=== PATIENT | female | born 1970 | race Caucasian/White ===

== ENCOUNTER → 2023-06-05 | Outpatient (CLI) | payer OTHER ==
--- NOTE | 2023-06-06 02:02 | MR ---
EXAMINATION TYPE: MR knee RT wo con DATE OF EXAM: 06/05/2023 COMPARISON: NONE HISTORY: Rt knee pain with locking and swelling for one month. Internal derangement per order. TECHNIQUE: Multiplanar, multisequence images of the knee is performed without IV contrast. FINDINGS: MEDIAL MENISCUS: Anterior and posterior horns are intact without tear. LATERAL MENISCUS: Anterior and posterior horns are intact without tear. CRUCIATE LIGAMENTS: The anterior and posterior cruciate ligaments are intact and unremarkable. COLLATERAL LIGAMENTS: The medial collateral ligament and lateral collateral ligament complex are inta ct and unremarkable. EXTENSOR MECHANISM: Visualized quadriceps and patellar tendons are intact. EFFUSION: Small to moderate size suprapatellar joint effusion. POPLITEAL CYST: Moderate size popliteal/kay cyst with adjacent fluid suggesting leak. Increased sig nal origin of the medial head gastrocnemius muscle axial image 11 consistent with tendinosis. TRICOMPARTMENT SPACES: Moderate to severe narrowing patellofemoral compartment. Moderate narrowing me dial tibiofemoral compartment. Mild tricompartment spurring. CARTILAGE: Chondromalacia patella with areas of full-thickness cartilaginous loss in the lower pole s een. BONE MARROW SIGNAL: Some heterogeneity is present. No suspicious edema is seen. OTHER: No additional significant abnormality is appreciated. IMPRESSION: 1. Tricompartmental degenerative changes are present as detailed above greatest involving the patello femoral compartment. 2. Hnobk-jd-gjqicxld sized suprapatellar joint effusion. 3. Moderate-size leaking popliteal cyst.
== END | disposition home or self-care (01) ==
LOC: RADMRIMAIN 07:05
PROVIDERS: ATTEND Orthopaedic Surgery Sports Medicine
DX: M17.11 Unilateral primary osteoarthritis, right knee (principal); M25.461 Effusion, right knee; M23.306 Other meniscus derangements, unspecified meniscus, right knee; M71.21 Synovial cyst of popliteal space [Baker], right knee

== ENCOUNTER → 2023-08-04 | Outpatient (CLI) | payer OTHER ==
[2023-08-04 11:43] LABS: Partial Thromboplastin Time 24.6 sec (22.0-30.0); Prothrombin Time 10.7 sec (10.0-12.5)
[2023-08-04 14:44] LABS: HCT 42.2 % (37.2-46.3); HGB 13.5 g/dL (12.0-15.0); MCH 29.7 pg (27.0-32.0); MCV 92.7 FL (80.0-97.0); Mean Platelet Volume 10.6 FL (9.5-12.2); NRBC Per 100 WBC 0 X 10*3/uL (0.00-0.01); Platelet Count 223 X 10*3/uL (140-440); RBC 4.55 X 10*6/uL (4.10-5.20); RDW 13.2 % (11.5-14.5); WBC 5.34 X 10*3/uL (4.50-10.00)
[2023-08-04 14:54] LABS: ALT 15 U/L (8-44); AST 19 U/L (13-35); Albumin 4.2 g/dL (3.8-4.9); Alkaline Phosphatase 50 U/L (41-126); BUN/Creat Ratio 9.57 Ratio (12.00-20.00); Blood Urea Nitrogen 6.7 mg/dL (9.0-27.0); Calcium 9.6 mg/dL (8.7-10.3); Carbon Dioxide 27.4 mmol/L (21.6-31.8); Chloride 102 mmol/L (96-109); Glucose 96 mg/dL (70-110); Potassium 4.9 mmol/L (3.5-5.5); Sodium 139 mmol/L (135-145); Total Bilirubin 0.3 mg/dL (0.3-1.2); Total Protein 6.2 g/dL (6.2-8.2)
== END | disposition home or self-care (01) ==
LOC: LABPAT 10:23
PROVIDERS: ATTEND Orthopaedic Surgery
DX: Z01.812 Encounter for preprocedural laboratory examination (principal); Z20.822 Contact with and (suspected) exposure to COVID-19
CPT/HCPCS: 80053; 85027; 85610; 85730; 87070

== ENCOUNTER 2023-08-19 09:30 | Day surgery (SDC) | payer OTHER ==
[2023-08-13 16:25] VITALS: BMI 43.2
[~2023-08-19 09:30] MED LIST: HYDROmorphone 0.5 MG/0.5 ML SYRINGE IVP PRN; LIDOCAINE 1% (10MG/ML) FOR IV START INTRADERMA PRN; TRANEXAMIC 1,000 MG/100ML-NACL 1,000 MG in SALINE 1 100ML.BAG IVPB PRN
[2023-08-19] MEDS: LACTATED RINGERS 1,000 ML IV SCH (09:45)
[2023-08-19] MEDS: MIDAZOLAM 2 MG/2 ML VIAL IVP ONE (10:26)
[2023-08-19] MEDS: MELOXICAM 7.5 MG TAB PO PRN (10:47)
[2023-08-19] MEDS: DEXAMETHASONE SOD PHOSPHATE 4 MG/ML 1 ML VIAL IVP ONE (10:47)
[2023-08-19] MEDS: ACETAMINOPHEN TAB 500 MG TAB PO PRN (10:47)
[2023-08-19] MEDS: ONDANSETRON 4 MG/2 ML VIAL IVP ONE (10:47)
[2023-08-19] MEDS: GABAPENTIN 300 MG CAP PO PRN (10:47)
[2023-08-19] MEDS ORDERED: NA PHOS,M-B/NA PHOS,DI-BA 133 ML ENEMA RECTAL PRN (10:53)
[2023-08-19] MEDS ORDERED: NALOXONE 0.4 MG/ML 1 ML VIAL IV PRN (10:53)
[2023-08-19] MEDS ORDERED: ONDANSETRON 4 MG/2 ML VIAL IVP PRN (10:53)
[2023-08-19] MEDS ORDERED: MAGNESIUM HYDROXIDE 2,400 MG/30 ML CUP PO PRN (10:53)
[2023-08-19] MEDS ORDERED: HYDROmorphone 0.5 MG/0.5 ML SYRINGE IVP PRN ×2 (10:53)
[2023-08-19] MEDS ORDERED: bisacodyL 10 MG SUPP RECTAL PRN (10:53)
[2023-08-19] MEDS ORDERED: HYDROmorphone 1 MG/ML 1 ML SYRINGE IVP PRN (10:53)
[2023-08-19] MEDS ORDERED: HYDROcodone/APAP 7.5-325MG 1 EACH TAB PO PRN (10:55)
[2023-08-19] MEDS ORDERED: SODIUM CHLORIDE 0.9% (PF) 10 ML VIAL ONE (11:16)
[2023-08-19] MEDS ORDERED: ROPIVACAINE 5 MG/ML 30 ML VIAL ONE (11:16)
[2023-08-19] MEDS ORDERED: MIDAZOLAM 2 MG/2 ML VIAL ONE (11:16)
[2023-08-19] MEDS ORDERED: PROPOFOL 10 MG/ML 20 ML VIAL IV ONE (11:16)
[2023-08-19] MEDS ORDERED: fentaNYL (PF) 50 MCG/ML 2 ML AMP ONE (11:16)
[2023-08-19] MEDS: ceFAZolin 1,000 MG in SODIUM CHLORIDE 0.9% 1,000 ML IRRIGATION ONE (11:43)
--- NOTE | 2023-08-19 11:55 | P.ANPRN ---
Procedure Note - Anesthesia - Nerve Block Performed Right Adductor Canal Infusion Time Out Performed: Yes (1024) Date of Procedure: 08/19/23 Location of Patient: PreOp Indication: Acute Post-Operative Pain, Analgesia, Dx/Pain Location (Right knee), Requested by Surgeon Specifically requested for management of pain by DrSawyer: Epifanio Najera Sedation Type: Sedate with meaningful contact maintained Preparation: Sterile Prep, Sterile Dressing Position: Supine Catheter: Indwelling Needle Types: Pajunk Needle Gauge: 18 Ultrasound used to visualize needle placement: Yes Ultrasound used to observe medication spread: Yes Injectate: 0.5% Ropivacaine (see comment for volume) (20 mL + 10 cc normal saline) Blood Aspirated: No Pain Paresthesia on Injection Noted: No Resistance on Injection: Normal Image Stored and Saved: Yes Events: Uneventful and Well Tolerated Right iPack Single Time Out Performed: Yes (1024) Date of Procedure: 08/19/23 Location of Patient: PreOp Indication: Acute Post-Operative Pain, Analgesia, Dx/Pain Location (Right Knee), Requested by Surgeon Specifically requested for management of pain by DrSawyer: Epifanio Najera Sedation Type: Sedate with meaningful contact maintained Preparation: Sterile Prep Position: Left Lateral Catheter: None Needle Types: Pajunk Needle Gauge: 21 Ultrasound used to visualize needle placement: Yes Ultrasound used to observe medication spread: Yes Injectate: 0.5% Ropivacaine (see comment for volume) (20 mL + 10 cc normal saline) Blood Aspirated: No Pain Paresthesia on Injection Noted: No Resistance on Injection: Normal Image Stored and Saved: Yes Events: Uneventful and Well Tolerated
[2023-08-19] MEDS: LACTATED RINGERS 1,000 ML IV ONE (12:32)
--- NOTE | 2023-08-19 12:32 | P.OP ---
Date of Procedure: 08/19/23 Preoperative Diagnosis: severe osteoarthritis right knee Postoperative Diagnosis: severe osteoarthritis right knee Procedure(s) Performed: right total knee arthroplasty Implants: M[employer]hew Journey II CR Oxinium cruciate retaining femoral component size 6, right [employer] Journey nonporous tibial baseplate size 5, right [employer] Journey II, XLPE Deep Dished articular insert, size 11 mm, Size 5-6, right [employer] Journey Evelina II resurfacing patellar component, oval, 29 mm All components were cemented using Palacos R bone cement The articulation is Oxinium on polyethylene Anesthesia: spinal Surgeon: Epifanio Najera Atomizer Assembler #1: Kelly Gomez Estimated Blood Loss (ml): 40 Pathology: none sent Condition: stable Disposition: PACU Indications for Procedure: The patient's knee is end-stage, and conservative management has failed. The operation of knee replacement has been discussed at length in the office, as well as potential risks and complications. These are inclusive of, but not limited to: Infection, bleeding, scarring, discomfort, stiffness, blood vessel and nerve damage, need for further surgery, failure to relieve symptoms, persistence, recurrence, or worsening of problems, loosening, dislocation, wear, blood clot, pulmonary embolism, , gait dysfunction, stiffness, and other risks as discussed in the office. Patient elects to proceed and the consent form has been signed. Operative Findings: the operative findings are consistent with severe osteoarthritis of the right knee Description of Procedure: The patient was seen in the preoperative area, the consent was reviewed and the operative site was marked with a skin marker. The patient verified the procedure and the operative site. An adductor canal pain catheter and an iPACK block were placed by anesthesia in the preoperative area. The patient was then brought to the operating room and positioned on the operating room table in the supine position. Preoperative antibiotics and a gram of tranexamic acid were given intravenously. A spinal anesthetic was administered by the anesthesia department. Care was taken to make sure that all pressure points were adequately padded. A tourniquet was placed on the upper thigh and the lower extremity was prepped with ChloraPrep and draped in usual sterile fashion. A universal time-out was then performed which confirmed the patient's name, surgical site, ALLERGIES, and consent. The lower extremity was then exsanguinated and tourniquet was inflated to 250 mmHg. A standard anterior midline approach to the knee was performed. The skin and subcutaneous tissue were sharply dissected down to the patellar tendon. A medial parapatellar arthrotomy was then performed. The knee was then extended, the patellar was everted, and the knee was flexed. The infra-patellar fat pad was removed in order to enhance exposure. The anterior horns of both menisci were excised, and a release was performed to the posterior medial aspect of the knee. On gross visual inspection, there was complete loss of articular cartilage in the medial and patellofemoral joint spaces. There was also significant cartilage damage in the lateral compartment. There were multiple periarticular osteophytes globally about the knee which were then removed with a Ronguer. The femoral canal was then opened with the 9.5 mm intramedullary drill. The 8 mm intramedullary rosa maria was then inserted into the femoral canal with the distal femoral cutting guide set for 5 of valgus. The distal femoral cutting block was then pinned in place. The intramedullary rosa maria was then removed, and the distal femur was then cut. The cutting block was then removed and the cut was checked for symmetry. The resected bone was then measured to confirm the appropriate distal femoral resection. Next, the sizing guide was then placed and set for 3 external rotation based off of the epicondylar axis and [place]'s line. Pins were then placed and the drill holes, and the femur was sized with the sizing stylus. The pins were then removed, and the sizing guide was then removed. The spikes of the appropriate size femoral block was then placed into the predrilled holes, and malleted into place. Two 45 mm pins were then placed into the fixation holes on the cutting block. An yane wing was then used to ensure there would be no notching with the anterior cut. The anterior condyles were cut without notching. The anterior chord cut was then performed, followed by the posterior cut, posterior chamfer cut, and the anterior chamfer cut. The collateral ligaments were protected during the entire process. The cutting block was then removed. Any remaining bone and osteophytes were removed from the femur with a Ronguer. Attention was then directed to the tibia. The remaining ACL was removed with a Ronguer, and the tibia was then gently subluxed forward with a large bent knee retractor. Any remaining menisci were excised. The posterior lateral corner was cauterized in order to coagulate the lateral geniculate artery. The extra medullary tibial cutting guide was then placed, set for the appropriate rotation, slope, and depth of resection. The proximal tibia cutting guide was then pinned in place. Proximal tibia was then cut and sized. A curved osteotome was then used to remove any posterior osteophytes from the distal femur. The femoral trial was placed. A narrow saw blade was then used to remove the anterior intracondylar femoral bone. The CR notch trial was then placed. The tibial trial was placed with the appropriate-sized insert. The knee was able to fully extend and flex to 130 and was stable throughout all range of motion. The knee was then extended and the patella was everted. Patella was then measured, and then using an osteotomy guide, the patella was cut at the appropriate level. The patellar component was sized. The patellar drill guide was placed and the patella was drilled. The patella trial was then placed. The knee was then taken through range of motion with the patella trial and the patella tracked normally using the no thumbs technique. The patella trial was then removed. The knee was then flexed and lug holes were drilled through the femoral trial and the femoral trial was then removed. The tibial was then re- exposed, and the tibial broach guide was then pinned in place after it was set for the appropriate rotation to allow for the most coverage without overhang. The tibia was then reamed and broached. The femoral canal was plugged with autologous bone. The cut surfaces of bone were then irrigated with pulsatile lavage. The knee was also irrigated with Irrisept solution. The components were then opened, the cement was mixed. Cement was placed on the backside of the femoral, tibial, and patellar components. Cement was then applied to the tibial surface and pressurized into the surface using finger pressurization technique. The tibial component was then applied and excess cement was removed after it was impacted securely noted to be flush with the cut surface. In similar fashion, the cement was applied to the cut femoral surface, pressurized and using finger pressurization the component was impacted in place. Excess cement was removed. The polyethylene spacer was then implanted and locked into position. Patellar component was then applied in a similar technique and the patellar clamp was used to hold patella in place while the cement hardened. The knee was held in full extension while the cement hardened. Once the cement had fully hardened, the knee was reinspected. Any other cement extrusion was removed the final range of motion testing showed range of motion from 0-130 with excellent stability, both medial and laterally and appropriate alignment of the leg. Patella tracked normally. After the cemented hardened, the tourniquet was released and hemostasis was obtained. A second gram of transexamic acid was given intravenously. The knee was again irrigated. The knee was again taken through range of motion and found to be stable throughout all range of motion of 0-130, and the patella tracked normally. The fascia was then closed with 0 Vicryl followed by #2 strata fix suture. The subcutaneous tissue was closed with 3-0 Vicryl and 3-0 strata fix. Exofin glue was used for the skin and placed with the knee in flexion. After the glue had dried, and Optafoam silver impregnated dressing was applied. A lightly compressive dressing was applied using web roll and Sathya wrap. Patient was then transferred to the stretcher and taken to recovery room in stable condition. Sponge and needle counts were correct. The anesthesiologists' assistant ETHAN Hopkins was required due the complexity surgery and the need for a skilled surgical elastic knitter. She assisted in positioning, draping, retraction, and closure of the wound.
[2023-08-19] MEDS: ROPIVACAINE 1,100 MG, SODIUM CHLORIDE 0.9% 500 ML 330 ML, EMPTY PAIN BALL 1 EACH MISCELLANE PRN (13:16)
[2023-08-19] MEDS: HYDROmorphone 0.5 MG/0.5 ML SYRINGE IVP ONE (15:38)
--- NOTE | 2023-08-19 16:05 | XR ---
EXAMINATION TYPE: XR knee limited RT DATE OF EXAM: 08/19/2023 COMPARISON: None HISTORY: Post knee replacement TECHNIQUE: 2 view right knee FINDINGS: Tibial and femoral components have been placed. No acute fracture or dislocation is evident . Postsurgical soft tissue changes are present. IMPRESSION: 1. No acute fracture post knee replacement.
[2023-08-19] MEDS: droPERidol 5 MG/2 ML VIAL IVP ONE (16:33)
[2023-08-19] MEDS: SODIUM CHLORIDE 0.9% 1,000 ML IV SCH (16:33)
[2023-08-19] MEDS ORDERED: ALBUTEROL HFA INHALER INHALATION PRN (17:03)
[2023-08-19] MEDS: HYDROcodone/APAP 7.5-325MG 1 EACH TAB PO PRN (17:03)
--- NOTE | 2023-08-19 17:55 | P.CONS ---
History of Present Illness - Reason for Consult Consult date: 08/19/23 Medical management Requesting physician: Epifanio Najera - Chief Complaint Right knee surgery - History of Present Illness This is a pleasant 52-year-old patient who follows with Dr. Adonay Goldman. Chronic stable medical conditions include urine incontinence, GERD, osteoarthritis. Patient has undergone right total knee arthroplasty. Postprocedure pain is controlled. No nausea vomiting. No cardiac symptoms. at the bedside. Review of systems: GEN.: None EYES: None HEENT: None NECK: None RESPIRATORY: None CARDIOVASCULAR: None GASTROINTESTINAL: Reflux e GENITOURINARY: Urine incontinence MUSCULOSKELETAL: Joint pains LYMPHATICS: None HEMATOLOGICAL: None PSYCHIATRY: None NEUROLOGICAL: None Social history: Lives with her . Is a schoolbus emergency detail driver. Smokes a pack a day for about 36 years. . Physical examination: VITAL SIGNS: 97.5, 99, 17, 132/83, 97% room air GENERAL: BMI 43.4, reclining bed awake comfortable. EYES: Pupils equal. Conjunctiva dennise l. HEENT: External appearance of nose and ears normal, oral cavity grossly normal. NECK: JVD not raised; masses not palpable. HEART: First and second heart sounds are normal; no edema. LUNGS: Respiratory rate normal; clear to auscultation. ABDOMEN: Soft, nontender, liver spleen not palpable, no masses palpable. PSYCH: Alert and oriented x3; mood and affect dennise l. MUSCULOSKELETAL:No Clubbing/cyanosis;muscles-grossly intact. Dressing over the right knee. Evidence of OA. NEUROLOGICAL: Cranial nerves grossly intact; no facial asymmetry, power and sensation grossly intact. LYMPHATICS: No lymph nodes palpable in the axilla and neck INVESTIGATIONS, reviewed in the clinical context: August 04, 2023: White count 5.3 hemoglobin 13.5 platelets 223 sodium 139 potassium 4.9 creatinine 0.7 Assessment plan: -Right total knee arthroplasty Aspirin 325 mg p.o. twice daily for DVT prophylaxis. Pain controlled. IV cefazolin for infection prophylaxis -GERD Protonix 40 mg twice daily -Chronic urine incontinence Oxybutynin 5 mg twice daily -Morbid obesity BMI 43.4 Weight loss measures -Chronic nicotine dependence cigarette smoking Nicotine patch. Patient was counseled. Care was discussed with the patient at the bedside. Questions answered. Thank Dr. Najera Past Medical History Additional Past Medical History / Comment(s): Varicose veins. Hx bronchitis. History of Any Multi-Drug Resistant Organisms: None Reported Past Surgical History: Appendectomy, Bladder Surgery, Section, Cholecystectomy Additional Past Surgical History / Comment(s): Section X3, bladder suspension, right total knee Past Anesthesia/Blood Transfusion Reactions: Motion Sickness, Postoperative Nausea & Vomiting (PONV) Past Psychological History: No Psychological Hx Reported Smoking Status: Current every day smoker Past Alcohol Use History: Occasional Additional Past Alcohol Use History / Comment(s): Smoker of 1 ppd for 20 yrs. Past Drug Use History: None Reported - Past Family History Mother Family Medical History: Cancer Additional Family Medical History / Comment(s): Breast cancer. Medications and Allergies Home Medications Medication Instructions Recorded Confirmed Type Acetaminophen [Tylenol Arthritis] 650 mg PO DIRECTED PRN 08/13/23 08/19/23 History Acetaminophen [Tylenol] 325 - 650 mg PO Q4H PRN 08/13/23 08/19/23 History Albuterol Sulfate [Ventolin HFA] 2 puff INHALATION Q4H PRN 08/13/23 08/19/23 History Pantoprazole Sodium 40 mg PO BID 08/13/23 08/19/23 History oxyBUTYnin chloride 5 mg PO BID 08/13/23 08/19/23 History traMADol HCL 50 mg PO HS PRN 08/13/23 08/19/23 History Aspirin 325 mg PO BID #60 tab 08/19/23 Rx HYDROcodone/APAP 7.5-325MG [[place] 1 - 2 tab PO Q6H PRN #32 tab 08/19/23 Rx 7.5-325] Sennosides [Senokot] 2 tab PO DAILY PRN #60 tablet 08/19/23 Rx Allergies Allergy/AdvReac Type Severity Reaction Status Date / Time No Known Allergies Allergy Verified 08/19/23 10:50 Physical Exam Vitals: Vital Signs Temp Pulse Resp BP Pulse Ox 08/19/23 16:23 97.5 F L 99 17 132/83 97 08/19/23 15:10 92 17 154/80 97 08/19/23 14:40 96 18 147/67 97 08/19/23 14:10 98 16 155/67 97 08/19/23 13:55 88 16 153/66 95 08/19/23 13:40 63 16 147/82 90 L 08/19/23 13:25 75 16 133/81 97 08/19/23 13:10 70 16 127/68 100 08/19/23 12:55 98.0 F 77 16 108/63 96 08/19/23 10:49 75 16 163/70 99 08/19/23 09:59 98 F 81 16 163/75 100 Intake and Output 08/19/23 08/19/23 08/19/23 06:59 14:59 22:59 Intake Total 2050 Output Total 40 Balance 2010 Intake: IV 2050 Output: Estimated Blood Loss 40 Other: Weight 118.3 kg 118.3 kg
[2023-08-19] MEDS: ASPIRIN 325 MG TAB PO SCH (20:48)
[2023-08-19] MEDS: PANTOPRAZOLE 40 MG TABLET PO SCH (20:49)
[2023-08-19] MEDS: oxyBUTYnin chloride 5 MG TAB PO SCH (20:49)
[2023-08-19] MEDS: SENNOSIDES-DOCUSATE SODIUM 1 EACH TAB PO SCH (20:49)
[2023-08-20 03:20] VITALS: RESP 16
--- NOTE | 2023-08-20 07:29 | P.PN ---
Progress Note - Text Progress Note Date: 08/20/23 Postoperative day # 1 status post total knee arthroplasty, on adductor canal perineural catheter placed for postoperative analgesia. Ropivacaine 0.2% 8 mL per hour through ON-Q pump continuous infusion. Pain is well controlled. On visual analog scale 2/10 Patient is taking PRN oral pain medications. Catheter site: Looks Ok. There is no erythema or tenderness. Continue with the current pain management plan and will follow.
[2023-08-20 09:18] LABS: Basophils # (A) 0.01 X 10*3/uL (0.00-0.10); Basophils % (A) 0.1 %; Eosinophils # (A) 0 X 10*3/uL (0.04-0.35); Eosinophils % (A) 0 %; HGB 12.1 g/dL (12.0-15.0); Lymphocytes # (A) 0.74 X 10*3/uL (0.90-5.00); Lymphocytes % (A) 9.3 %; MCH 30.3 pg (27.0-32.0); MCHC 32.7 g/dL (32.0-37.0); MCV 92.5 FL (80.0-97.0); Mean Platelet Volume 10.5 FL (9.5-12.2); Monocytes # (A) 0.59 X 10*3/uL (0.20-1.00); Monocytes % (A) 7.4 %; NRBC Per 100 WBC 0 X 10*3/uL (0.00-0.01); Neutrophils # (A) 6.59 X 10*3/uL (1.80-7.70); Neutrophils % (A) 82.7 %; Platelet Count 195 X 10*3/uL (140-440); RDW 13.2 % (11.5-14.5); WBC 7.97 X 10*3/uL (4.50-10.00)
--- NOTE | 2023-08-20 09:48 | P.DS ---
Providers Expected date of discharge: 08/20/23 Attending physician: Epifanio Najera Consults: 08/19/23 10:53 Consult Physician Routine Consulting Provider: Jonathan Bray Consult Reason/Comments: medical management Do you want consulting provider notified?: Yes Primary care physician: Adonay Osuna - Discharge Diagnosis(es) (1) Osteoarthritis of right knee Current Visit: Yes Status: Acute (2) S/P total knee arthroplasty Current Visit: Yes Status: Acute Hospital Course: This is a 52-year-old female with known history of degenerative arthritis of the right knee. The patient presented for evaluation as an outpatient. After discussion and consideration patient elects to proceed with total knee arthroplasty. The patient is seen preoperatively by Dr. Najera and medically cleared for surgery by their primary care physician. Patient is admitted to [facility] on 08/19/2023 for total knee arthroplasty. The procedure is performed without complication or sequelae. The patient is doing well postoperatively. Labs and vital signs are stable on day of discharge. On day of discharge patient's knee incision is healing well. There is minimal erythema. There is no drainage noted at this time. There is minimal soft tissue swelling to the knee. Patient has full foot and ankle motion without difficulty or pain. Calf is soft and nontender to palpation. Neurovascular status to the right lower extremity is intact. Patient is discharged home in good condition. Please see med rec for accurate list of home medications. Plan - Discharge Summary Discharge Rx Participant: No New Discharge Prescriptions: New Aspirin 325 mg PO BID #60 tab HYDROcodone/APAP 7.5-325MG [[place] 7.5-325] 1 - 2 tab PO Q6H PRN #32 tab PRN Reason: Pain Sennosides [Senokot] 2 tab PO DAILY PRN #60 tablet PRN Reason: Constipation No Action Acetaminophen [Tylenol Arthritis] 650 mg PO DIRECTED PRN PRN Reason: Pain Acetaminophen [Tylenol] 325 - 650 mg PO Q4H PRN PRN Reason: Pain oxyBUTYnin chloride 5 mg PO BID Pantoprazole Sodium 40 mg PO BID Albuterol Sulfate [Ventolin HFA] 2 puff INHALATION Q4H PRN PRN Reason: Shortness Of Breath traMADol HCL 50 mg PO HS PRN PRN Reason: Pain Discharge Medication List Acetaminophen [Tylenol Arthritis] 650 mg PO DIRECTED PRN 08/13/23 [History] Acetaminophen [Tylenol] 325 - 650 mg PO Q4H PRN 08/13/23 [History] Albuterol Sulfate [Ventolin HFA] 2 puff INHALATION Q4H PRN 08/13/23 [History] Pantoprazole Sodium 40 mg PO BID 08/13/23 [History] oxyBUTYnin chloride 5 mg PO BID 08/13/23 [History] traMADol HCL 50 mg PO HS PRN 08/13/23 [History] Aspirin 325 mg PO BID #60 tab 08/19/23 [Rx] HYDROcodone/APAP 7.5-325MG [[place] 7.5-325] 1 - 2 tab PO Q6H PRN #32 tab 08/19/23 [Rx] Sennosides [Senokot] 2 tab PO DAILY PRN #60 tablet 08/19/23 [Rx] Follow up Appointment(s)/Referral(s): Epifanio Najera DO [Doctor of Osteopathic Medicine] - 2 Weeks Activity/Diet/Wound Care/Special Instructions: Weightbearing as tolerated with a walker. CPM 5-6h daily as tolerated. Leave dressing intact. Dressing may be removed by home care nurse or by patient in 7 days. Then change dressing twice daily until follow up. May shower with initial dressing intact and after removal. If dressing become saturated, please remove. Recommend use of compression stockings daily until follow up to help prevent swelling and blood clots. May remove at night before sleeping. Please take aspirin 325mg twice daily for 30 days to prevent blood clots. Please follow up with [facility] and call with any questions or concerns, . Discharge Disposition: HOME WITH HOME HEALTH SERVICES
[2023-08-20 09:51] VITALS: BP 119/73; PULSE 78; TEMP 98
--- NOTE | 2023-08-20 15:49 | P.PN ---
Progress Note - Text Progress Note Date: 08/20/23 - Chief Complaint Right knee surgery - History of Present Illness This is a pleasant 52-year-old patient who follows with Dr. Adonay Goldman. Chronic stable medical conditions include urine incontinence, GERD, osteoarthritis. Patient has undergone right total knee arthroplasty. Postprocedure pain is controlled. No nausea vomiting. No cardiac symptoms. at the bedside. August 20, 2023: Patient did ambulate well. Some pain at operative site. Eating fair. Questions answered. present. Medications reviewed Social history: Lives with her . 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 . Physical examination: VITAL SIGNS: 98, 78, 16, 109/73, 100% room air GENERAL: Sitting up, comfortable EYES: Pupils equal. Conjunctiva dennise l. HEENT: External appearance of nose and ears normal, oral cavity grossly normal. NECK: JVD not raised; masses not palpable. HEART: First and second heart sounds are normal; no edema. LUNGS: Respiratory rate normal; clear to auscultation. ABDOMEN: Soft, nontender, liver spleen not palpable, no masses palpable. PSYCH: Alert and oriented x3; mood and affect dennise l. MUSCULOSKELETAL:No Clubbing/cyanosis;muscles-grossly intact. Dressing over the right knee. Evidence of OA. INVESTIGATIONS, reviewed in the clinical context: August 19: White count 7.9 hemoglobin 12.1 platelets 195 August 04, 2023: White count 5.3 hemoglobin 13.5 platelets 223 sodium 139 potassium 4.9 creatinine 0.7 Assessment plan: -Right total knee arthroplasty Aspirin 325 mg p.o. twice daily for DVT prophylaxis. Pain controlled. IV cefazolin for infection prophylaxis -GERD Protonix 40 mg twice daily -Chronic urine incontinence Oxybutynin 5 mg twice daily -Morbid obesity BMI 43.4 Weight loss measures -Chronic nicotine dependence cigarette smoking Nicotine patch. Patient was counseled. Discussed with patient . Questions answered. Follow-up with PCP Thank Dr. Najera Past Medical History Additional Past Medical History / Comment(s): Varicose veins. Hx bronchitis. History of Any Multi-Drug Resistant Organisms: None Reported Past Surgical History: Appendectomy, Bladder Surgery, Section, Cholecystectomy Additional Past Surgical History / Comment(s): Section X3, bladder suspension, right total knee Past Anesthesia/Blood Transfusion Reactions: Motion Sickness, Postoperative Nausea & Vomiting (PONV) Past Psychological History: No Psychological Hx Reported Smoking Status: Current every day smoker Past Alcohol Use History: Occasional Additional Past Alcohol Use History / Comment(s): Smoker of 1 ppd for 20 yrs. Past Drug Use History: None Reported
== END 2023-08-20 11:58 | disposition home health service (06) ==
LOC: OR 09:30 → 4SSUR 12:49 → OR 08-20 11:58
PROVIDERS: ATTEND Orthopaedic Surgery
DX: M17.11 Unilateral primary osteoarthritis, right knee (principal); E66.01 Morbid (severe) obesity due to excess calories; K21.9 Gastro-esophageal reflux disease without esophagitis; G89.18 Other acute postprocedural pain; F17.210 Nicotine dependence, cigarettes, uncomplicated; Z68.41 Body mass index [BMI] 40.0-44.9, adult; Z79.82 Long term (current) use of aspirin; Z79.899 Other long term (current) drug therapy; Z90.49 Acquired absence of other specified parts of digestive tract
CPT/HCPCS: 97161; 64999; 64448; 85025; 73560; 27447; C1713; C1776; C1751; J2250; J1100; J0690 ×3; J2405; J3010; J2795; J2704; J1170